=== PATIENT | male | born 1950 | race Caucasian/White ===

== ENCOUNTER 2020-04-26 22:34 | Emergency (ER) | payer MEDICARE ==
--- NOTE | 2020-04-27 02:36 | NUR ---
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 PT WAS BROUGHT IN BY [place] EMT, FOUND UNRESPONSIVE AND HAD BEEN INTEBATED. SON MAGDALENA AND HIS LEONIDAS WERE HERE COMMUNICATING TO HIS MOTHER PT'S CONDITION. CPR WAS PERFORMED TWICE, PT TAKEN TO IMAGING FOR CT. DR CHAPIN EXPLAINED PT'S CONDITION IN A VERY CLEAR WAY THAT ULTIMATELY HELPED THE FAMILY DECIDE TO HONOR WHAT THEY BELIEVE WOULD BE THE PT'S WISH AND REMOVE FROM LIFE SUPPORT. 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 PT PASSED HOUSE [employer]IMBERLY BOWMAN CONTACTED M.E. AND DONOR LINE. PIONEEER [employer] CONTACTED, PAPER WORK GIVEN, [id number] HRS. ASSISTED WITH TRANSFER OF BODY
--- NOTE | 2020-04-27 12:40 | EKG ---
[facility] [address] [facility] [place], [place] [address] Signed Wide QRS rhythm Right bundle branch block Left posterior fascicular block Bifascicular block T wave abnormality, consider inferior ischemia Abnormal ECG Confirmed by JERICHO SIMMS DO ([id number]) on 04/27/2020 12:39:55 PM Electronically Signed By: JERICHO SMIMS DO 04/27/20 1240 PATIENT NAME: SCOTTIE HERNANDEZ Electrocardiogram DATE OF : 46 PHYSICIAN: JERICHO SIMMS DO REPORT #: [id number] REPORT IS CONFIDENTIAL AND NOT TO BE RELEASED WITHOUT AUTHORIZATION
== END 2020-04-27 03:57 ==
LOC: ED 22:34 → EDBD 22:35 → ED 22:35
DX: I46.9 Cardiac arrest, cause unspecified (principal); I95.9 Hypotension, unspecified; I50.9 Heart failure, unspecified; J44.9 Chronic obstructive pulmonary disease, unspecified
CPT/HCPCS: 31500; 51702; 70450; 71045; 74176; 80053; 81001; 83605; 85025; 85610; 85730; 92950; 93005; 93010; 94002; 99291; 99292; J0171; J7030